=== PATIENT | male | born 1980 | race Caucasian/White ===

== ENCOUNTER 2016-11-07 10:17 | Observation (INO) ==
[2016-11-07] MEDS ORDERED: Ketorolac 30 MG/ML VIAL IVP ONE ×2 (11:07→17:42)
[2016-11-07] MEDS ORDERED: 0.9 % Sodium Chloride 1,000 ML IVC ONE (11:07)
[2016-11-07] MEDS ORDERED: Ondansetron 4 MG/2 ML VIAL IVP ONE (11:07)
--- NOTE | 2016-11-07 11:08 | Emergency Department Note ---
Disposition Clinical Impression: Abdominal pain Qualifiers: Abdominal location: periumbilical Qualified Code(s): R10.33 - Periumbilical pain Acute appendicitis Qualifiers: Acute appendicitis type: unspecified acute appendicitis type Qualified Code(s) : K35.80 - Unspecified acute appendicitis Disposition: Admitted As Inpatient Referrals: NO,PCP [Primary Care Provider] - Time of Disposition: 15:56 Abdominal Pain HPI - General Chief Complaint: ED Abdominal Pain Stated Complaint: abd pain Time Seen by Provider: 11/07/16 10:25 Source: patient, family Mode of arrival: private vehicle Nursing Notes Reviewed: Yes Vital Signs Reviewed: Yes - History of Present Illness Pt Subjective Complaint: abdominal pain Onset (ago): day(s) (2) Consistency: constant Location: periumbilical Pain Severity: moderate Pain Scale: 8 Quality: aching, cannot describe Radiation: none Migration to: no migration Improves with: nothing Worsens with: nothing Context: history of similar episodes (diverticulitis) Associated symptoms: Reports: nausea, fever, constipation (last BM was 3 days ago). Denies: vomiting, diarrhea, chills Treatments prior to arrival: other (Was seen at [facility] yesterday for same.) - Related Data Allergies Allergy/AdvReac Type Severity Reaction Status Date / Time No Known Allergies Allergy Verified 11/07/16 10:19 All systems ED: reviewed and negative except as stated. Constitutional: Reports: fever. Denies: chills, weakness, night sweats Cardiovascular: Denies: chest pain, palpitations Respiratory: Reports: cough (Intermittent, dry). Denies: dyspnea, wheezes, hemoptysis Gastrointestinal: Reports: as per HPI, abdominal pain. Denies: nausea, vomiting Genitourinary: Denies: urgency, dysuria, frequency, hematuria Musculoskeletal: Denies: back pain, joint swelling, arthralgia Integumentary: Denies: rash, pruritus Neurological: Denies: headache Hematological/Lymphatic: Denies: easy bleeding, easy bruising, lymphadenopathy Abdominal Pain PMH - Past Medical History Reports: diverticulosis, diverticulitis Male Surgical History: Reports: herniorrhaphy (last year) - Social History Smoking status: Current every day smoker Alcohol use: Reports: none Drug use: Reports: none Physical Exam - General Limitations: no limitations General appearance: alert, in no apparent distress - Head Head exam: atraumatic, normocephalic, normal inspection - Eye Eye exam: Present: normal appearance, PERRL. Absent: scleral icterus, conjunctival injection, periorbital swelling - ENT ENT exam: mucous membranes moist - Neck Neck exam: Present: normal inspection, full ROM. Absent: meningismus - Respiratory Respiratory exam: Present: normal lung sounds bilaterally. Absent: respiratory distress - Cardiovascular Cardiovascular exam: Present: regular rate, normal rhythm, normal heart sounds - Abdominal Exam Abdominal exam: Present: soft, tenderness, tenderness at McBurney's Point. Absent: distention, guarding, rebound, rigidity, organomegaly, mass, pulsatile mass - Extremities Exam Extremities exam: Present: normal inspection, full ROM - Neurological Exam Neurological exam: Present: alert, oriented X3, CN II-XII intact, normal gait - Psychiatric Psychiatric exam: Present: normal affect, normal mood - Skin Skin exam: Present: warm, dry, intact, normal color Course Course Narrative: Patient presents for evaluation of abdominal pain that started yesterday morning. It has gotten progressively worse. He was seen at [facility] last night and did have a CAT scan done. He states, "I was not given any diagnosis, but they told me to come back if I was not feeling better in 12 hours." He states that he did not feel completely comfortable with his care there, which is why he came to this hospital today. 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 He has had similar abdominal pain in the past when he had an episode of diverticulitis. He denies diarrhea. His last bowel movement was three days ago. He has been able to eat. He had a baked potato last night but nothing today. He appears uncomfortable but nontoxic. He is afebrile with normal vitals. Repeat labs have been ordered and the case has been discussed with Dr. Rea. He will take over care of this patient. - Consultations Consultation #1: Discussed with who will sent his nurse practitioner down to see the patient and make a determination Time: 15:19 Vital Signs Temperature 98.1 F 11/07/16 10:17 Pulse Rate 84 11/07/16 10:17 Respiratory Rate 18 11/07/16 10:17 Blood Pressure 118/77 11/07/16 10:17 O2 Sat by Pulse Oximetry 97 11/07/16 10:17 Temperature 98.1 F 11/07/16 10:17 Pulse Rate 60 11/07/16 15:00 Respiratory Rate 16 11/07/16 15:00 Blood Pressure 122/83 11/07/16 15:00 O2 Sat by Pulse Oximetry 99 11/07/16 15:00 Oxygen Delivery Oxygen Delivery Room Air Abdominal Pain - Lab Data Result diagrams: 11/07/16 11:29 11/07/16 11:29 Lab Results 11/07/16 11/07/16 Range/Units 11:29 11:29 WBC 12.0 H (4.3-11.1) K/mcL RBC 4.67 (4.19-5.50) M/mcL Hgb 14.6 (12.9-16.9) g/dL Hct 44.0 (37.5-50.1) % MCV 94.2 (83.0-100.0) fL MCH 31.3 (28.0-33.3) pg MCHC 33.2 (31.6-35.5) g/dL RDW 13.2 (11.5-14.5) % Plt Count 195 (140-400) K/mcL MPV 10.4 (9.4-12.4) fL Immature Gran % 0.6 (0-4) % Seg Neutrophils % 70.8 % Lymphocytes % 17.5 % Monocytes % 8.7 % Eosinophils % 1.9 % Basophils % 0.5 % Neutrophils # 8.5 (1.6-8.9) K/mcL Lymphocytes # 2.1 (0.6-4.6) K/mcL Monocytes # 1.0 (0.0-1.3) K/mcL Eosinophils # 0.2 (0.0-0.6) K/mcL Basophils # 0.1 (0.0-0.2) K/mcL Sodium 140 (136-145) mEq/L Potassium 4.1 (3.5-4.5) mEq/L Chloride 107 (98-109) mEq/L Carbon Dioxide 29 (19-29) mEq/L BUN 16 (8-26) mg/dL Creatinine 0.91 (0.72-1.25) mg/dL Est GFR ( Amer) > 60 (> 60) Est GFR (Non-Af Amer) > 60 (> 60) BUN/Creatinine Ratio 18 (6-26) Glucose 90 (70-99) mg/dL Calculated Osmolality 291 (280-300) Calcium 8.8 (8.6-10.8) mg/dL Total Bilirubin 0.5 (0.2-1.2) mg/dL Direct Bilirubin 0.2 (0.0-0.5) mg/dL Indirect Bilirubin 0.3 (0.0-1.2) mg/dL AST 55 H (5-34) Units/L ALT 102 H (0-55) Units/L Alkaline Phosphatase 87 (38-126) Units/L Serum Total Protein 7.0 (6.0-8.3) g/dL Albumin 3.3 L (3.5-5.0) g/dL Globulin 3.7 H (2.4-3.5) g/dL Albumin/Globulin Ratio 0.9 L (1.1-2.2) Lipase 27 (8-78) Units/L Attestation Statement - Attestation Attestation: For this encounter, I have reviewed the MASH FILTER OPERATOR or PA documentation, treatment plan, and medical decision making; and I have had face to face time with this patient. 36-year-old male who comes in with right lower quadrant pain was seen outside facility had a CT without contrast yesterday was negative. White count elevated today exam shows tenderness right lower quadrant CT scan shows acute appendicitis we will admit to surgery for evaluation and treatment.
[2016-11-07 11:38] LABS: Basophils # 0.1 K/mcL (0.0-0.2); Basophils % 0.5 %; Eosinophils # 0.2 K/mcL (0.0-0.6); Eosinophils % 1.9 %; Hemoglobin 14.6 g/dL (12.9-16.9); Immature Granulocytes % 0.6 % (0-4); Lymphocytes # 2.1 K/mcL (0.6-4.6); Lymphocytes % 17.5 %; Mean Corpuscular HGB Conc 33.2 g/dL (31.6-35.5); Mean Corpuscular Hemoglobin 31.3 pg (28.0-33.3); Mean Corpuscular Volume 94.2 fL (83.0-100.0); Mean Platelet Volume 10.4 fL (9.4-12.4); Monocytes % 8.7 %; Neutrophils # 8.5 K/mcL (1.6-8.9); Platelet Count 195 K/mcL (140-400); Red Blood Count 4.67 M/mcL (4.19-5.50); Red Cell Distribution Width 13.2 % (11.5-14.5); Segmented Neutrophils % 70.8 %
[2016-11-07 12:00] LABS: Alanine Aminotransferase 102 Units/L (0-55); Albumin 3.3 g/dL (3.5-5.0); Albumin/Globulin Ratio 0.9 (1.1-2.2); Alkaline Phosphatase 87 Units/L (38-126); Aspartate Amino Transferase 55 Units/L (5-34); BUN/Creatinine Ratio 18 (6-26); Bilirubin,Direct 0.2 mg/dL (0.0-0.5); Bilirubin,Indirect 0.3 mg/dL (0.0-1.2); Bilirubin,Total 0.5 mg/dL (0.2-1.2); Blood Urea Nitrogen 16 mg/dL (8-26); Calcium 8.8 mg/dL (8.6-10.8); Carbon Dioxide 29 mEq/L (19-29); Chloride 107 mEq/L (98-109); Globulin 3.7 g/dL (2.4-3.5); Glucose 90 mg/dL (70-99); Lipase 27 Units/L (8-78); Osmolality,Calculated 291 (280-300); Potassium 4.1 mEq/L (3.5-4.5); Sodium 140 mEq/L (136-145); eGFR For African Americans > 60 (> 60); eGFR For Non-African Americans > 60 (> 60)
--- NOTE | 2016-11-07 16:00 | General Surg History&Physical ---
Date of Encounter: 11/07/16 Time of Encounter: 15:57 Assessment and Plan (1) Acute appendicitis Current Visit: Yes Status: Acute Plan for laparoscopic appendectomy. The assessment and plan as outlined above was discussed with the patient and/or family members who expressed understanding and agreement. All questions were answered. Qualifiers: Acute appendicitis type: with localized peritonitis Qualified Code(s): K35.3 - Acute appendicitis with localized peritonitis History of Present Illness HPI: Mr. Cheema is a 36 year old male with 24 hours of RLQ pain. He reports the pain has increased continously. Past Med Surg Social Fam HX - Past Medical History Medical history: no medical history, other (History of substance abuse) - Social History Smoking Status: Current every day smoker Smokeless Tobacco Status: No Alcohol use: none Drug use: none Medications and Allergies Allergies No Known Allergies Allergy (Verified 11/07/16 10:19) Review of Systems All systems PM: reviewed and no additional remarkable complaints except as stated All systems PM: A 10-system review of systems was performed and is negative for pertinent findings except as documented above in the HPI. General Surgery Exam Initial Vital Signs Temp Pulse Resp BP Pulse Ox 98.1 F 84 18 118/77 97 11/07/16 10:17 11/07/16 10:17 11/07/16 10:17 11/07/16 10:17 11/07/16 10:17 - General physical appearance well nourished, no distress - Eyes PERRL, normal ocular movement - Respiratory normal respiratory effort, clear to percussion - Abdomen Abdomen general surgery: Present: soft, non tender - Integumentary Integumentary general surgery: Present: warm and dry, no abnormal pigmentation - Musculoskeletal Present: normal posture - Additional Findings CT positive for appendicitis Abdomen/Pelvis CT 11/07/16 14:15 IMPRESSION: Acute appendicitis D/ / Lev Cruz MD / Lev Cruz MD Interpreting Provider: Lev Cruz MD Results - Labs 11/07/16 11:29 11/07/16 11:29 Abnormal lab results WBC 12.0 K/mcL (4.3-11.1) H 11/07/16 11:29 AST 55 Units/L (5-34) H 11/07/16 11:29 ALT 102 Units/L (0-55) H 11/07/16 11:29 Albumin 3.3 g/dL (3.5-5.0) L 11/07/16 11:29 Globulin 3.7 g/dL (2.4-3.5) H 11/07/16 11:29 Albumin/Globulin Ratio 0.9 (1.1-2.2) L 11/07/16 11:29 Diabetes panel 11/07/16 Range/Units 11:29 Sodium 140 (136-145) mEq/L Potassium 4.1 (3.5-4.5) mEq/L Chloride 107 (98-109) mEq/L Carbon Dioxide 29 (19-29) mEq/L BUN 16 (8-26) mg/dL Creatinine 0.91 (0.72-1.25) mg/dL Glucose 90 (70-99) mg/dL Calcium 8.8 (8.6-10.8) mg/dL AST 55 H (5-34) Units/L ALT 102 H (0-55) Units/L Alkaline Phosphatase 87 (38-126) Units/L Albumin 3.3 L (3.5-5.0) g/dL Calcium panel 11/07/16 Range/Units 11:29 Calcium 8.8 (8.6-10.8) mg/dL Albumin 3.3 L (3.5-5.0) g/dL Pituitary panel 11/07/16 Range/Units 11:29 Sodium 140 (136-145) mEq/L Potassium 4.1 (3.5-4.5) mEq/L Chloride 107 (98-109) mEq/L Carbon Dioxide 29 (19-29) mEq/L BUN 16 (8-26) mg/dL Creatinine 0.91 (0.72-1.25) mg/dL Glucose 90 (70-99) mg/dL Calcium 8.8 (8.6-10.8) mg/dL Adrenal panel 11/07/16 Range/Units 11:29 Sodium 140 (136-145) mEq/L Potassium 4.1 (3.5-4.5) mEq/L Chloride 107 (98-109) mEq/L Carbon Dioxide 29 (19-29) mEq/L BUN 16 (8-26) mg/dL Creatinine 0.91 (0.72-1.25) mg/dL Glucose 90 (70-99) mg/dL Calcium 8.8 (8.6-10.8) mg/dL Total Bilirubin 0.5 (0.2-1.2) mg/dL AST 55 H (5-34) Units/L ALT 102 H (0-55) Units/L Alkaline Phosphatase 87 (38-126) Units/L Albumin 3.3 L (3.5-5.0) g/dL All other labs normal.
--- NOTE | 2016-11-07 16:06 | Anesthesia Evaluation PreOp ---
Date of Encounter: 11/07/16 Time of Encounter: 16:04 - Past History Planned Operation: lap appy Cardiac History: Denies any Significant Hx Pulmonary History: Smoker, Snore Other Medical History: Denies Any Significant HX Anesthesia History: No Prior Anesthetic Complications, Past Anesthesia ([facility]) Alcohol Use: none Drug use: none, other (h/o substance abuse (IV heroin and etoh). pt requests no narcotics) Medications and Allergies Psyllium Husk [Daily Fiber] 0.52 gm PO DAILY 11/07/16 [History] Allergies No Known Allergies Allergy (Verified 11/07/16 10:19) - Meds/Allergy Pre-op Review Medications Reviewed: Yes Allergies Reviewed: Yes Beta Blockers on Current Med List: No Anesthesia Results - Labs 11/07/16 11:29 11/07/16 11:29 Anesthesia Exam O2 Sat Height 1.85 m Weight 104.326 kg O2 Sat by Pulse Oximetry 99 O2 Sat by Pulse Oximetry 97 O2 Sat by Pulse Oximetry 97 O2 Sat by Pulse Oximetry 98 O2 Sat by Pulse Oximetry 97 Vital Signs Temp Pulse Resp BP Pulse Ox 98.1 F 84 18 118/77 97 11/07/16 10:17 11/07/16 10:17 11/07/16 10:17 11/07/16 10:17 11/07/16 10:17 Height: 1.85 Weight: 104 NPO (# of Hours): >8 - HEENT Pupil (Motor): Pupils equal, EOMI Mallampati: I Teeth: Normal Oral Opening: Greater than 3 - INTERPRETER DEAF LOC: Oriented INTERPRETER DEAF Motor: Normal RUE, Normal LUE, Normal RLE, Normal LLE, Normal Face INTERPRETER DEAF Sensory: Normal: RUE, LUE, RLE, LLE, Face - Cardiac Rhythm: Regular Murmur: None - Pulmonary Breath Sounds: bilateral Clear Respiratory Effort: Symmetrical Anesthesia Assess/Plan ASA Score: 2 (*no narcotics ketamine, toradol, ofirmev) Modified Vian Scale for Level of Consciousness: Cooperative, oriented, and tranquil Anesthetic Plan: General Monitoring Plan: Standard Monitors Recovery Plan: PACU
[2016-11-07] MEDS ORDERED: *HR* Rocuronium Bromide 50 MG/5 ML VIAL ONE (16:13)
[2016-11-07] MEDS ORDERED: Neostigmine Methylsulfate 3 MG/3 ML SYRINGE ONE (16:13)
[2016-11-07] MEDS ORDERED: *HR* Propofol 200 MG/20 ML VIAL IVP ONE (16:13)
[2016-11-07] MEDS ORDERED: Ondansetron 4 MG/2 ML VIAL ONE (16:13)
[2016-11-07] MEDS ORDERED: Dexamethasone 4 MG/ML VIAL ONE (16:13)
[2016-11-07] MEDS ORDERED: *HR* Succinylcholine 200 MG/10 ML VIAL IVP ONE (16:13)
[2016-11-07] MEDS ORDERED: *HR* Promethazine 25 MG/ML VIAL IVP PRN (16:15)
[2016-11-07] MEDS ORDERED: *HR* HYDROmorphone (PF) 1 MG/ML SYRINGE IVP PRN (16:15)
[2016-11-07] MEDS ORDERED: Ketamine *HR* 500 MG/10 ML MDV ONE (16:17)
[2016-11-07] MEDS ORDERED: Ketorolac 30 MG/ML VIAL ONE (16:28)
[2016-11-07] MEDS ORDERED: Acetaminophen IV 1,000 MG/100 ML INFUS..BTL ONE (16:29)
--- NOTE | 2016-11-07 16:49 | Discharge Summary ---
Date of Encounter: 11/07/16 Time of Encounter: 16:45 - Discharge Diagnosis (1) Acute appendicitis Priority: Primary Status: Resolved Qualifiers: Acute appendicitis type: with localized peritonitis Qualified Code(s): K35.3 - Acute appendicitis with localized peritonitis - Discharge Medications Prescriptions: Ibuprofen [Motrin] 800 mg PO Q8HR #50 tablet Tramadol HCl [Ultram] 50 mg PO QID PRN #30 tab PRN Reason: Pain Home Medications: Ibuprofen [Motrin] 800 mg PO Q8HR #50 tablet 11/07/16 [Rx] Psyllium Husk [Daily Fiber] 0.52 gm PO DAILY 11/07/16 [History] Tramadol HCl [Ultram] 50 mg PO QID PRN #30 tab 11/07/16 [Rx] Allergies/Adverse Reactions: Allergies No Known Allergies Allergy (Verified 11/07/16 10:19) General Surgery Exam Initial Vital Signs Temp Pulse Resp BP Pulse Ox 98.1 F 84 18 118/77 97 11/07/16 10:17 11/07/16 10:17 11/07/16 10:17 11/07/16 10:17 11/07/16 10:17 Date of admission: 11/07/16 16:18 Primary care physician: PCP NO Discharging clinician: Chace [facility]) Anticipated date of discharge: 11/07/16 - Patient Status Disposition: Home, Self-Care Condition: Good Functional capacity at discharge: independent ambulation Overall status at discharge: patient is progressing back to baseline - Discharge Instructions Follow Up With: NO,PCP [Primary Care Provider] - (Patient will need to follow up with primary care provider or surgeon in 2 weeks for postoperative check) Additional Instructions: #1 may shower, no tub bath for 2 weeks #2 wash incisions with soap and water and pat dry daily #3 no lifting, pushing, pulling more than 15 pounds for the next 1 week #4 no driving until able to safely react in the car #5 may climb stairs - Diet and Activity Activity: increase activity as tolerated Diet: advance to your usual diet - Hospital Course Hospital course: Mr. Cheema is a 36 year old male presented to the hospital with a 24-hour history of abdominal pain. He had a CAT scan completed with contrast which shows evidence of acute appendicitis. He was started on IV antibiotic therapy and taken to the operating room for laparoscopic appendectomy. We will begin discharge planning to home when the patient meets discharge criteria including tolerating liquids without nausea vomiting, vital signs are stable and afebrile , pain is well controlled, voiding and emailing without difficulty. The patient may follow-up with a surgeon in [place] or his primary care provider for postoperative check in 2 weeks. - Time Spent with Patient Total time spent providing and/or coordinating discharge services: Less than 30 minutes - Attending Attestation I examined this patient and my medical decision-making was reviewed with the HOUSING DEVELOPMENT SPECIALIST/PA/Advanced Practice Nurse/Resident Physician. I agree with the documented findings, disposition and treatment plan as described except to the extent set forth below.
[2016-11-07] MEDS ORDERED: CefOXitin 2,000 MG VIAL IVPB ONE (16:53)
--- NOTE | 2016-11-07 17:17 | Operative Note ---
Date of procedure: 11/07/16 Pre-op diagnosis: Appendicitis Post-op diagnosis: same Procedure: Laparoscopic appendectomy Anesthesia: LIZZ Surgeon: Chace Lozada Estimated blood loss (cc): 5 Specimen: Appendix Condition: stable Disposition: same day Procedure in Detail: After informed consent, patient was taken to the operating room placed in supine position. After adequate sedation anesthesia the abdomen was prepped and draped. A 12 mm cannula was placed in the umbilicus. A 5 mm cannulas placed in suprapubic region and the left lower quadrant. Camera was inserted and the abdomen after a pneumoperitoneum. 2 Cameron graspers were used to identify the base of the appendix. A appendiceal window was created. A FILI endoscopic stapler was placed across the base. A vascular load was placed across the mesoappendix. Once the appendix was was placed in an Endobag and removed through the umbilicus. The right lower quadrant was suctioned dry no bleeding was identified. Remainder the pneumoperitoneum was evacuated. The umbilicus was closed with an 0 Vicryl suture in [id number] fashion. Skin was closed with 4-0 Vicryl suture and Dermabond.
--- NOTE | 2016-11-07 18:38 | Anesthesia Evaluation Post Op ---
Date of Encounter: 11/07/16 Time of Encounter: 18:37 - Vital Signs Vital Signs: Vital Signs/O2 Sat/Glucose, Most Current Temp Pulse Resp BP Pulse Ox 11/07/16 18:27 97.2 F L 65 20 143/99 100 11/07/16 18:17 97.1 F L 58 18 148/102 99 11/07/16 18:07 61 18 156/106 99 11/07/16 17:57 97.2 F L 62 18 163/10 99 11/07/16 17:47 58 18 153/105 96 11/07/16 17:39 63 18 151/102 96 11/07/16 17:27 97.1 F L 75 22 156/98 98 11/07/16 16:11 98.4 F 16 138/87 11/07/16 15:00 60 16 122/83 99 - Lungs Lungs: Clear Ascult./Percussion - Airway Airway: Non-obstructed - Cardiovascular Regular Rate - Mental Status Mental Status: Alert & Oriented, Answers Appropriately - Pain Pain Scale: 2 - Nausea Vomiting Nausea Vomiting: Not Present - Hydration Hydration: Tolerates oral liquids - Discharge PostOp Status: Transfer Patient to floor
[2016-11-07] MEDS ORDERED: Naloxone 0.4 MG/ML INJ IVP PRN (19:08)
[2016-11-07] MEDS ORDERED: 0.9 % Sodium Chloride 1,000 ML IVC SCH (19:08)
[2016-11-07] MEDS ORDERED: Ibuprofen 800 MG TABLET PO PRN (19:08)
[2016-11-07] MEDS ORDERED: Ondansetron 4 MG/2 ML VIAL IVP PRN (19:08)
[2016-11-07] MEDS ORDERED: traMADol 50 MG TABLET PO PRN (19:08)
[2016-11-07 20:00] VITALS: BP 142/90
== END 2016-11-07 19:45 | disposition home or self-care (01) ==
LOC: EMEROO 10:17 → 3ANU 10:17 → EMEROO 16:12 → 3ANU 16:19
PROVIDERS: ADMIT Nurse Practitioner Family; ATTEND Surgery